=== PATIENT | male | born 1995 | race Caucasian/White ===

== ENCOUNTER 2017-12-11 02:53 | Emergency (ER) | payer BC ==
[~2017-12-11] VITALS: Ht 175.3 cm; Wt 77.1 kg
[2017-12-11 02:55] VITALS: BP_SYST 138
[2017-12-11] MEDS ORDERED: DIPH-TET-PERTUS Vaccine 0.5 ML VIAL (ADACEL) I.M. ONE (03:15)
[2017-12-11] MEDS ORDERED: LIDOCAINE 1% 10 MG/ML, 20 ML MDV INJ ONE (03:15)
[2017-12-11 03:32] VITALS: BP_SYST 134
== END 2017-12-11 03:32 | disposition home or self-care (01) ==
LOC: SED 02:53
DX: S01.111A Laceration without foreign body of right eyelid and periocular area, initial encounter (principal); W19.XXXA Unspecified fall, initial encounter; Y93.89 Activity, other specified; Y92.009 Unspecified place in unspecified non-institutional (private) residence as the place of occurrence of the external cause; Y99.8 Other external cause status
CPT/HCPCS: 90715; 99283